=== PATIENT | female | born 1950 | race Caucasian/White ===

== ENCOUNTER 2017-01-04 06:32 | Day surgery (SDC) | payer OTHER ==
[~2017-01-04] VITALS: Ht 152.4 cm; Wt 57.0 kg
[2017-01-04] VITALS (15 sets, daily range): BP systolic 115–155; BP diastolic 61–74; PULSE 67–112; RESP 10–20; Ht 152.4 cm; Wt 57.0 kg
[2017-01-04] MEDS ORDERED: LACTATED RINGER'S 1,000 ML IV SCH (07:00)
[2017-01-04 08:39] LABS: ADD SCAN DIFF NO
[2017-01-04 09:07] LABS: ALBUMIN/GLOBULIN RATIO 1.35; BILIRUBIN,INDIRECT 0.8 mg/dl (0-1.1); BILIRUBIN,TOTAL 0.8 mg/dl (0.2-1.3); TOTAL PROTEIN 8.7 g/dl (6.1-8.1)
[2017-01-04 09:09] LABS: BASOPHIL # 0.1 10^3/ul (0.0-0.1); BASOPHILS % 0.9 % (0.0-2.0); EOSINOPHILS # 0.2 10^3/ul (0.0-0.5); EOSINOPHILS % 2.3 % (0.0-7.0); HEMATOCRIT 40.3 % (37.0-47.0); HEMOGLOBIN 13.3 g/dl (12.0-16.0); LYMPHOCYTES # 1.8 10^3/ul (0.8-2.9); LYMPHOCYTES % 23.6 % (15.0-51.0); MEAN CORPUSCULAR HEMOGLOBIN 28.5 pg (29.0-33.0); MEAN CORPUSCULAR VOLUME 86.3 fl (82.0-101.0); MEAN PLATELET VOLUME 11.4 fl (7.4-10.4); MONOCYTE # 0.5 10^3/ul (0.3-0.9); MONOCYTES % 6.1 % (0.0-11.0); PLATELET COUNT 291 10^3/UL (140-415); RED BLOOD COUNT 4.67 10^6/ul (4.20-5.40); WHITE BLOOD COUNT 7.4 10^3/ul (4.8-10.8)
[2017-01-04 09:10] LABS: CALCIUM 9.4 mg/dl (8.4-10.2); CREATININE 0.59 mg/dl (0.44-1.00); POTASSIUM 3.7 mmol/L (3.5-5.1)
[2017-01-04] MEDS ORDERED: LIDOCAINE 2% (SDV) 5 ML INJ ONE (09:46)
[2017-01-04] MEDS ORDERED: PROPOFOL 20 ML ONE (09:46)
[2017-01-04] MEDS ORDERED: DEXAMETHASONE 4 MG/ML 1 ML INJ ONE (09:58)
[2017-01-04] MEDS ORDERED: ONDANSETRON 4 MG INJ ONE (09:58)
[2017-01-04] MEDS ORDERED: METOCLOPRAMIDE 10 MG INJ ONE (09:58)
[2017-01-04] MEDS ORDERED: FENTAnyl 50 MCG/ML VIAL ONE (09:59)
[2017-01-04] MEDS ORDERED: ONDANSETRON 4 MG INJ IV PRN (11:00)
[2017-01-04] MEDS ORDERED: PROCHLORPERAZINE 10 MG INJ IV PRN (11:00)
[2017-01-04] MEDS ORDERED: MEPERIDINE 25 MG INJ IV PRN (11:00)
[2017-01-04] MEDS ORDERED: FENTAnyl 50 MCG/ML VIAL IV PRN (11:00)
[2017-01-04] MEDS ORDERED: DIPHENHYDRAMINE 50 MG INJ IV PRN (11:00)
[2017-01-04] MEDS ORDERED: HYDROmorphONE (0.2 MG/ML) 10ML SYG IV PRN (11:00)
--- NOTE | 2017-01-04 11:06 | HP ---
Date/Time of Note Date/Time of Note DATE: 01/04/17 TIME: 11:01 Assessment/Plan VTE Prophylaxis VTE Prophylaxis Intervention: ambulation Lines/Catheters IV Catheter Type (from Nrs): Peripheral IV Assessment/Plan Chief Complaint/Hosp Course postmenopausal bleeding Problems: Assessment/Plan Dilation and Curettage HPI/ROS Admit Date/Time Admit Date/Time Hx of Present Illness postmenopausal bleeding ROS Constitutional: improved, no complaints Eyes: no complaints ENT: no complaints Respiratory: no complaints Cardiovascular: no complaints Gastrointestinal: no complaints Genitourinary: no complaints Musculoskeletal: no complaints Skin: no complaints Neurologic: no complaints Endocrine: no complaints Lymphatic: no complaints Psychological: nl mood/affect, no complaints Immunologic: no complaints PMH/Family/Social Past Medical History Medical History: no pertinent history Past Surgical History Past Surgical Hx: other (c/s) Family History Significant Family History: no pertinent family hx Social History Smoking Status: Never smoker Exam/Review of Systems Vital Signs Vitals Vital Signs Date Time Temp Pulse Resp B/P Pulse Ox O2 Delivery O2 Flow Rate FiO2 01/04/17 10:48 97.5 01/04/17 10:43 98 10 125/66 100 Mask 8.0 Exam Constitutional: alert, oriented, well developed Psych: nl mood/affect, no complaints Head: atraumatic, normocephalic Eyes: EOMI, PERRL, nl conjunctiva, nl lids, nl sclera ENMT: nl external ears & nose, nl lips & teeth, nl nasal mucosa & septum Neck: non-tender, supple Respiratory: clear to auscultation, normal air movement Cardiovascular: nl pulses, regular rate and rhythm Gastrointestinal: nl liver, spleen, non-tender, soft Musculoskeletal: nl extremities to inspection Extremities: normal pulses Neurological: [employer] II-XII intact, nl mental status, nl speech, nl strength Skin: nl turgor, No rash or lesions Lymph: nl lymph nodes Labs Result Diagram: 01/04/17 0830 01/04/17 0830 Medications Medications Current Medications Lactated Ringer's (Lr) 1,000 ml @ 125 mls/hr Q8H IV ; Start 01/04/17 at 07:00 ZARIA KINGSTON MD Jan 04, 2017 11:06
[2017-01-04] MEDS ORDERED: EPHEDrine SULFATE 50 MG/5 ML SYG ONE (11:18)
--- NOTE | 2017-01-04 11:18 | OPR ---
Date/Time of Note Date/Time of Note DATE: 01/04/17 TIME: 11:07 Operative Report Procedure Date: Jan 04, 2017 Preoperative Diagnosis postmenopausal bleeding Postoperative Diagnosis same Operation Performed Dilation and Curettage Surgeon: ZARIA KINGSTON MD Anesthesia: general Anesthesiologist: SELVIN SOUSA MD Estimated Blood Loss: minimal Specimens Endometrial curetting Complications: None Pt Condition Post Procedure: stable Disposition: PACU Procedure Description Patient was taken to OR and placed in supine position. After adequate general anesthesia was given patient was placed in dorsal lithotomy position. The area was prepped and draped. Speculum was placed in vagina. Tenaculum was used to grasp the anterior lip o cervix Using cervical dilators, cervix was dilated. Using curette sharp curettage was performed and speciemen obtained was sent to Pathology. All the instruments were removed. Patient tolerated the procedure well. Patient was awakened from anesthesia and transferred to PACU in stable condition. ZARIA KINGSTON MD Jan 04, 2017 11:17
--- NOTE | 2017-01-04 14:44 | RADRPT ---
PROCEDURE: CHEST 1VW CLINICAL INDICATION: Preoperative TECHNIQUE: Single frontal view of the chest was obtained COMPARISON: None. FINDINGS: The cardiac size is normal. Mild atherosclerotic calcifications are demonstrated. There is no pulmonary vascular congestion. The lungs are clear. No consolidation, effusion, or pneumothorax. Mild degenerative changes of the visualized osseous structures are visualized. IMPRESSION: 1. No acute cardiopulmonary process. 2. Atherosclerosis. RPTAT:PP .Erick Cox MD, MD Date Time Electronically viewed and signed by .Erick Cox MD, on 01/04/2017 14:44 .V/
--- NOTE | 2017-01-05 10:31 | RADRPT ---
Vent Rate: 67 bpm RR Interval: 0 msec TX Interval: 138 msec QRS Duration: 88 msec QT Interval: 428 msec QTC Interval: 452 msec P-R-T Vendor: 18 - 42 - 47 degrees Normal sinus rhythm Normal ECG Electronically Signed By: Jhonny Antonio [id number]
== END 2017-01-04 12:24 | disposition home or self-care (01) ==
LOC: SDS 06:32
PROVIDERS: ATTEND Obstetrics & Gynecology
DX: N95.0 Postmenopausal bleeding (principal)
CPT/HCPCS: 58120; 71010; 80053; 85025; 86850; 86900; 86901; 88305; 93005; J1100; J2405; J2765; J3010

== ENCOUNTER 2017-09-08 17:07 | Emergency (ER) | END 2017-09-08 20:26 | disposition home or self-care (01) ==

== ENCOUNTER 2018-06-12 15:32 | Emergency (ER) | END 2018-06-12 18:00 | disposition home or self-care (01) ==

== ENCOUNTER 2018-09-05 09:02 | Day surgery (SDC) | payer OTHER ==
[~2018-09-05] VITALS: Ht 154.9 cm; Wt 59.6 kg
[~2018-09-05 09:02] MED LIST: HYDR-4011 PO; IBUP-1542 PO; NAPR-688 PO
[2018-09-05 10:44] VITALS: BP 134/69; PULSE 81; RESP 18
[2018-09-05] MEDS ORDERED: NO MEDS (10:53)
[2018-09-05 10:54] VITALS: Ht 154.9 cm; Wt 59.6 kg
[2018-09-05] MEDS ORDERED: MIDAZOLAM 1 MG/ML 2 ML INJ ONE ×2 (11:32)
[2018-09-05] MEDS ORDERED: FENTAnyl 50 MCG/ML VIAL ONE (11:32)
[2018-09-05 11:55] VITALS: BP 114/65; RESP 16
== END 2018-09-05 12:12 | disposition home or self-care (01) ==
LOC: GIL 09:02
PROVIDERS: ATTEND Internal Medicine Gastroenterology
DX: Z12.11 Encounter for screening for malignant neoplasm of colon (principal); K64.8 Other hemorrhoids
CPT/HCPCS: 45378; J2250; J3010